=== PATIENT | female | born 1970 | race Caucasian/White ===

== ENCOUNTER 2018-05-23 14:34 | Emergency (ER) | payer MEDICAID ==
[~2018-05-23] VITALS: Ht 170.2 cm; Wt 82.2 kg
[2018-05-23 15:00] VITALS: BP 179/183
[2018-05-23] MEDS ORDERED: KETOROLAC 60 MG/2 ML VIAL IM ONE (17:15)
[2018-05-23 17:56] VITALS: BP 165/98
== END 2018-05-23 17:56 | disposition home or self-care (01) ==
LOC: MED 14:34
DX: H10.9 Unspecified conjunctivitis (principal); I10 Essential (primary) hypertension
CPT/HCPCS: 96372; 99283; J1885

== ENCOUNTER 2019-07-17 15:55 | Emergency (ER) | payer MEDICAID, OTHER ==
[~2019-07-17] VITALS: Ht 152.4 cm; Wt 86.2 kg
[2019-07-17 16:11] VITALS: BP 134/93
[2019-07-17] MEDS ORDERED: NACL 0.9% 1,000 ML IV SCH (16:36)
--- NOTE | 2019-07-17 16:37 | NUR ---
BIB SELF C/O ABD PAIN, N/V/D X3 DAYS S/P TRIP TO [place] jul 08- LOWER ABD PAIN, SHARP/STABBING 10/10, NON RADIATING. DENIES SOB/ CHEST PAIN. CHILLS PRESENT. PT IS PALE, NON-DIAPHORETIC. NO COUGH PRESENT. BOWEL SOUNDS NORMOACTIVE IN ALL QUADRANTS. CAP REFILL <3. ABD FIRM/NON TENDER. PMH: HTN NKA
[2019-07-17] MEDS ORDERED: DIPHENOXYLATE /ATROPINE 2.5 MG TAB PO ONE (16:40)
[2019-07-17] MEDS ORDERED: ONDANSETRON 4 MG/2 ML VIAL IVP ONE ×2 (16:40→18:25)
[2019-07-17] MEDS ORDERED: ACETAMINOPHEN 325 MG TAB PO ONE (16:40)
[2019-07-17 17:01] LABS: BASOPHILS % (AUTO) 0.3 % (0.0-2.0); EOSINOPHILS # (AUTO) 0.1 K/uL (0-0.4); EOSINOPHILS % (AUTO) 1.6 % (0.0-4.0); HEMATOCRIT 29.4 % (36-48); HEMOGLOBIN 9.4 g/dL (12.0-16.0); LYMPHOCYTES # (AUTO) 0.6 K/uL (2.5-16.5); LYMPHOCYTES % (AUTO) 7.1 % (20.5-51.1); MEAN CORPUSCULAR HEMOGLOBIN 28 pg (27-31); MEAN CORPUSCULAR HGB CONC 32 g/dL (33-37); MEAN CORPUSCULAR VOLUME 88.7 fL (80-94); MONOCYTES # (AUTO) 0.9 K/uL (0.8-1.0); MONOCYTES % (AUTO) 10.9 % (1.7-9.3); NEUTROPHILS # (AUTO) 6.8 K/uL (1.8-7.7); NEUTROPHILS % (AUTO) 80.1 % (42.2-75.2); PLATELET COUNT (AUTO) 173 K/uL (140-450); RED BLOOD CELL COUNT(AUTO) 3.32 MIL/uL (4.20-5.40); WHITE BLOOD COUNT (AUTO) 8.5 K/uL (4.8-10.8)
[2019-07-17 17:03] LABS: BILIRUBIN,URINE 1+ (NEGATIVE); BLOOD, URINE 2+ (NEGATIVE); COLOR,URINE YELLOW (YELLOW); LEUKOCYTE ESTERASE ,URINE TRACE (NEGATIVE); NITRITE, URINE NEGATIVE (NEGATIVE); PH,URINE 5.5 (5.0-9.0); UGLUCOSE NEGATIVE (NEGATIVE)
[2019-07-17 17:08] LABS: APPEARANCE,URINE HAZY (CLEAR)
[2019-07-17 17:25] LABS: RBC,URINE 0-5 /HPF (0-5); WBC,URINE 0-5 /HPF (0-5)
[2019-07-17 17:40] LABS: ALBUMIN 2.4 g/dL (3.4-5.0); ANION GAP 17.2 (8-16); CARBON DIOXIDE 20.8 mmol/L (21-32); CREATININE 2.8 mg/dL (0.6-1.3); TOTAL BILIRUBIN 0.6 mg/dL (0.0-1.0)
[2019-07-17] MEDS ORDERED: MORPHINE SULFATE 2 MG/ML SYR IVP ONE (18:25)
--- NOTE | 2019-07-17 18:57 | NUR ---
PATIENT REPORTS HEAD PAIN HAS IMPROVED, 2/10. ABD PAIN 8/10. NAUSEA PRESENT.
[2019-07-17 19:05] VITALS: BP 135/67
--- NOTE | 2019-07-17 19:06 | NUR ---
Patient discharged with v/s stable. Written and verbal after care instructions given and explained. Patient alert, oriented and verbalized understanding of instructions. Ambulatory with steady gait. All questions addressed prior to discharge. ID band removed. Patient advised to follow up with PMD. Rx of ZOFRAN, LOMOTIL, NORCO given. Patient educated on indication of medication including possible reaction and side effects. Opportunity to ask questions provided and answered.
--- NOTE | 2019-07-18 08:26 | NUR ---
Late entry. Confirmed with RN that 0.9NS IV completed at 1800
== END 2019-07-17 19:06 | disposition home or self-care (01) ==
LOC: MED 15:55
DX: E86.0 Dehydration (principal); M32.8 Other forms of systemic lupus erythematosus; N28.9 Disorder of kidney and ureter, unspecified
CPT/HCPCS: 36415; 80053; 81001; 81025; 83690; 85025; 96374; 96375; 96376; 99283; J2270; J2405; J7030

== ENCOUNTER 2019-07-22 23:09 | Inpatient (IN) | payer SELFPAY ==
[~2019-07-22] VITALS: Ht 167.6 cm; Wt 81.6 kg
[2019-07-22 23:15] VITALS: BP 178/100
--- NOTE | 2019-07-22 23:15 | NUR ---
TO BED # 02 AMBULATORY
--- NOTE | 2019-07-22 23:38 | NUR ---
PT C/O ABD PAIN N/V/D X FEW DAYS. PT ALSO STATES HAVING C/P. PT APPEARS TO BE PALE, WARM AND DRY. PT FAMILY AT BEDSIDE STATES NORMALLY PALE BUT MORE PALE THAN NORMAL. PT STATES HAVING 1 EPISODE OF BLOOD IN STOOL. PT STATES VOMITING UP EVERYTHING INCLUDING MEDICATION. PT APPEARS TO BE IN NO DISTRESS. TENDER TO PALPATION IN DIFUSE ABD. NSR. CLEAR LUNGS. NO SOB. AAOX4 WITH EVEN AND STEADY GAIT; LUNGS CLEAR BL; HR EVEN AND REGULAR; PT DENIES ANY FEVER, SOB, OR COUGH AT THIS TIME; PATIENT STATES PAIN OF 5/10 AT THIS TIME; BP ELEVATED; PATIENT POSITIONED FOR COMFORT; HOB ELEVATED; BEDRAILS UP X1; BED DOWN. ER MD MADE AWARE OF PT STATUS.
[2019-07-22] MEDS ORDERED: PANTOPRAZOLE 40 MG INJ VIAL IVP ONE (23:45)
[2019-07-23] LABS: BASOPHILS # (AUTO) 0.1 K/uL (0.00-0.22); EOSINOPHILS # (AUTO) 0.2 K/uL (0-0.4); EOSINOPHILS % (AUTO) 3.2 % (0.0-4.0); HEMATOCRIT 32.4 % (36-48); HEMOGLOBIN 10.6 g/dL (12.0-16.0); LYMPHOCYTES # (AUTO) 0.5 K/uL (2.5-16.5); MEAN CORPUSCULAR HEMOGLOBIN 28 pg (27-31); MEAN CORPUSCULAR HGB CONC 33 g/dL (33-37); MEAN CORPUSCULAR VOLUME 86.7 fL (80-94); MONOCYTES # (AUTO) 0.6 K/uL (0.8-1.0); MONOCYTES % (AUTO) 11.7 % (1.7-9.3); NEUTROPHILS # (AUTO) 4.1 K/uL (1.8-7.7); NEUTROPHILS % (AUTO) 75.1 % (42.2-75.2); PLATELET COUNT (AUTO) 243 K/uL (140-450); RED BLOOD CELL COUNT(AUTO) 3.74 MIL/uL (4.20-5.40); RED CELL DISTRIBUTION WIDTH 14.7 % (11.6-13.7); WHITE BLOOD COUNT (AUTO) 5.5 K/uL (4.8-10.8)
[2019-07-23 00:15] LABS: ALBUMIN 2.5 g/dL (3.4-5.0); ANION GAP 15.5 (8-16); CARBON DIOXIDE 23.8 mmol/L (21-32); CREATININE 1.6 mg/dL (0.6-1.3); POTASSIUM 4.3 mmol/L (3.5-5.1); TOTAL BILIRUBIN 0.2 mg/dL (0.0-1.0)
--- NOTE | 2019-07-23 00:26 | NUR ---
PT GIVEN ZOFRAN 4MG IVP GIVEN FOR NAUSEA.
--- NOTE | 2019-07-23 00:30 | NUR ---
UA COLLECTED. B/P 192/111. NOTIFED. GAVE ORDER TO CONTINUE TO [facility] AT THIS TIME.
[2019-07-23] MEDS ORDERED: ONDANSETRON 4 MG/2 ML VIAL IVP ONE (00:35)
[2019-07-23 00:39] LABS: PROTHROMBIN TIME 10.5 secs (10.8-13.4)
[2019-07-23 00:43] LABS: APPEARANCE,URINE CLEAR (CLEAR); BILIRUBIN,URINE NEGATIVE (NEGATIVE); BLOOD, URINE 2+ (NEGATIVE); COLOR,URINE YELLOW (YELLOW); LEUKOCYTE ESTERASE ,URINE NEGATIVE (NEGATIVE); NITRITE, URINE NEGATIVE (NEGATIVE); UGLUCOSE NEGATIVE (NEGATIVE)
--- NOTE | 2019-07-23 00:43 | NUR ---
Dr. Singh examining patient.
[2019-07-23 00:57] LABS: RBC,URINE 11-20 (MOD) /HPF (0-5); WBC,URINE 0-5 /HPF (0-5)
[2019-07-23] MEDS ORDERED: NACL 0.9% 1,000 ML IV ONE (01:05)
--- NOTE | 2019-07-23 01:13 | NUR ---
DR. SALMON AT BEDSIDE.
[2019-07-23] MEDS ORDERED: MORPHINE SULFATE 4 MG/ML SYR IVP ONE (01:15)
--- NOTE | 2019-07-23 01:19 | NUR ---
PT TAKEN TO CT
--- NOTE | 2019-07-23 01:40 | NUR ---
MORPHINE 4MG IVP GIVEN FOR C/P 10/26. BP: 196/111, HR:80.
[2019-07-23] MEDS ORDERED: hydrALAZINE 20 MG/ML VIAL IVP ONE (02:00)
--- NOTE | 2019-07-23 02:10 | NUR ---
PT BP:203/119. DR. SALMON MADE AWARE AND GAVE NEW ORDERS FOR HYDRALAZINE 10MG IVP.
[2019-07-23] MEDS ORDERED: LEFL20TA18 PO (02:35)
[2019-07-23] MEDS ORDERED: LISI10TA11 PO (02:35)
[2019-07-23] MEDS ORDERED: CARV25TA PO (02:35)
[2019-07-23] MEDS ORDERED: HYDR-3298 PO (02:35)
[2019-07-23] MEDS ORDERED: PRED20TA5 PO (02:35)
[2019-07-23] MEDS ORDERED: hydrALAZINE 20 MG/ML VIAL IVP PRN (02:40)
--- NOTE | 2019-07-23 02:40 | NUR ---
PT B/P WENT DOWN TO 193/109. DR. SALMON MADE AWARE AND GAVE NEW ORDER FOR ANOTHER DOSE OF HYRALAZINE 10 MG IVP.
--- NOTE | 2019-07-23 03:15 | NUR ---
PT AAO X4. DENIES SOB. RESPIRATIONS ARE EVEN AND UNLABORED. PT NO LONGER HAS C/O CHEST PAIN 0. BP: 154/99, HR: 90. O2SAT @ 100% RA.
--- NOTE | 2019-07-23 03:25 | NUR ---
RECEIVED FROM ER PER WHEELCHAIR AWAKE AND ALERT. ABLE TO VERBALIZE NEEDS WELL IN YI. CALL LIGHT WITH IN REACH. CARE PLANS FOR THE NIGHT DISCUSSED WITH HER AND CALL LIGHT USE EXPLAINED. PT. ROM X 4. CLEAR SPEECH. DX. OF DEHYDRATION AND GI BLEED. AFEBRILE. SKIN INTACT. NO SOB.
--- NOTE | 2019-07-23 03:25 | NUR ---
Patient will be admitted to [facility]. Admited to [facility]. Will go to room 112B. Belongings list completed. Report to BLAZE HALE.
[2019-07-23 04:00] VITALS: BP 156/88
--- NOTE | 2019-07-23 04:16 | NUR ---
ADMISSION MADE BY USING [employer] DIRECTIONAL DRILL OPERATOR SRINIVAS # [id number]. PT. ABLE TO TALK IN KITTITIAN A LITTLE BUT COMFORTABLE WITH SRI LANKAN.
[2019-07-23] MEDS: NACL 0.45% 1,000 ML IV SCH ×3 (05:44→16:08)
--- NOTE | 2019-07-23 05:44 | NUR ---
1/2 NS AT 100 ML STARTED ORDERED BY MD COLBY. PT. SLEEPING AT THIS TIME BUT WAKES UP EVERY NOW AND THEN AND C/O VOMITING AND NAUSEA. A/O X 4.
[2019-07-23] MEDS: METOCLOPRAMIDE 10 MG/2 ML INJ VIAL IVP SCH ×3 (05:55→17:44)
[2019-07-23] MEDS: ONDANSETRON 4 MG/2 ML VIAL IVP PRN ×2 (05:59→10:35)
--- NOTE | 2019-07-23 06:45 | NUR ---
SLEEPING AT THIS TIME.
--- NOTE | 2019-07-23 07:10 | NUR ---
REPORT RECEIVED FROM NIGHT NURSE BLAZE. PT ASLEEP, NO S/S OF ACUTE DISTRESS NOTED, CALL LIGHT AND PERSONAL ITEMS WITHIN REACH, SAFETY AND FALL PRECAUTIONS IN PLACE. WILL CONTINUE TO MONITOR.
--- NOTE | 2019-07-23 08:51 | NUR ---
DC PLANNING 48 YRS OLD FEMALE PATIENT WAS ADMITTED FROM HOME WITH A DX OF DEHYDRATION AND GI BLEEDING. PT HAS A HX OF LUPUS,ANEMIA AND HTN. CXR SHOWED MILD CARDIOMEGALY ,CT ABD/PELVIS (-). STARTED IV PROTONIX , IVF ZOFRAN AND MORPHINE IVP . DC PLAN TO GO HOME WHEN STABLE CM TO FOLLOW. Addendum: 07/24/19 at 1057 by Beverly Lawson CM DC PLANNING: PT'S H/H WNL , INCREASE BP 166/99 STARTED CLONIDINE MG Q8HRS IN ADDITION TO BP HOME MEDS. DC PLAN IF BP WNL DC HOME TODAY. Addendum: 07/25/19 at 1414 by Beverly Lawson CM DC PLANNING VITALS STABLE 143/79 PT HAS A DISCHARGE ORDER TO GO HOME AND FOLLOW UP WITH PCP
[2019-07-23 08:59] VITALS: BP 181/96
--- NOTE | 2019-07-23 09:03 | NUR ---
PATIENT HAS BEEN SCREENED AND CATEGORIZED MODERATE NUTRITION RISK. PATIENT WILL BE SEEN WITHIN 3-5 DAYS OF ADMISSION. 2.8.[address]
--- NOTE | 2019-07-23 09:15 | NUR ---
PT BP ASSESSED AND NOTED TO BE ELEVATED, PT C/O GUTIERREZ STATES SHE HAS A HX OF MIGRANES, DENIES VISUAL DISTURBANCES, CONTINUES TO C/O NAUSEA, PAGED, CHARGE NURSE NOTIFIED AWAITING REPLY.
[2019-07-23] MEDS: PANTOPRAZOLE 40 MG INJ VIAL IVP SCH (09:37)
[2019-07-23] MEDS ORDERED: INFLUENZA VACCINE QUAD 0.5 ML SYR IMVAC PRN (10:00)
[2019-07-23] MEDS ORDERED: ONDANSETRON 4 MG/2 ML VIAL IVP PRN (10:15)
--- NOTE | 2019-07-23 10:15 | NUR ---
SPOKE W DR STEVE, NOTIFIED PT BP, CO HEADACHE AND PT STATES SHE HAS A HX OF MIGRAINES AND CONTINUED C/O NAUSEA, ORDERS RECEIVED
[2019-07-23] MEDS ORDERED: SUMAtriptan 50 MG TAB PO SCH (11:00)
--- NOTE | 2019-07-23 11:15 | NUR ---
PT SLEEPING AT THIS TIME, APPEARS COMFORTABLE. CALL LIGHT AND PERSONAL ITEMS REMAIN WITHIN REACH, SAFETY PRECAUTIONS IN PLACE. WILL CONTINUE TO MONITOR.
[2019-07-23 12:30] VITALS: BP 194/106
[2019-07-23] MEDS ORDERED: CARVEDILOL 12.5 MG TAB PO SCH (12:40)
--- NOTE | 2019-07-23 12:50 | NUR ---
SPOKE WITH DR STEVE , NOTIFIED OF PT BP, HX OF HTN AND HOME MEDS, ORDERS RECEIVED.
[2019-07-23] MEDS: HYDROCHLOROTHIAZIDE 25 MG TAB PO SCH (13:01)
[2019-07-23] MEDS: LOSARTAN 50 MG TAB PO SCH (13:02)
[2019-07-23 13:30] VITALS: BP 162/99
[2019-07-23] MEDS ORDERED: COMMUNICATION ORDER MC PRN (14:10)
[2019-07-23 14:41] LABS: HEMATOCRIT 30.7 % (36-48)
--- NOTE | 2019-07-23 14:50 | NUR ---
PT SLEEPING AT THIS TIME NO S/S OF ACUTE DISTRESS NOTED, CALL LIGHT AND PERSONAL ITEMS IN REACH, SAFETY AND FALL PRECATIONS IN PLACE, WILL CONTINUE TO MONITOR.
[2019-07-23] MEDS ORDERED: CLON0.1T42 PO (14:52)
--- NOTE | 2019-07-23 15:47 | NUR ---
SUZANNE assessment/discharge plan: High Risk DC Screen Yes Name: Jamshid Vasquez Home Relationship: Pre-Admission Living Arrangements: Lives with Other Other: Jamshid Vasquez Prior ADL Independent Current Home Health Name/Tel: N/A Current DME/02 Name/Tel: N/A Current Hospice Name/Tel: N/A Current Dialysis Name/Tel: N/A Healthcare Decision Maker: Patient Advance Directive No Information Taught: Community Resources Person Taught: Children Teaching Tools: Community Resources Verbal Factors Affecting Learning: None Participation Level: Active Evaluation: Gestures Understanding Verbalizes Understanding Educator: SUZANNE Price Discipline: Case Mgt/Social Svcs Tentative Discharge Plan Summary: Patient is a 48 year old female admitted for dehydration/GI bleed. I met with patient and patient's daughter Yojana Vasquez at bedside. Patient was sleeping. I obtained the following information from Yojana. Patient lives at home with her Jamshid Vasquez and plans to return home upon discharge. Patient's pcp is Helga Robles and she does not have any difficulty filling her prescriptions at pharmacy. Patient does not have hx of mental health or alcohol/substance abuse. Per Garment Fitter Laina, patient use to have [employer] coverage and now does not have insurance, I informed Yojana of this. Per Yojana, she will tell patient to follow up with [employer]. I provided Yojana with education on [employer] www.[email or web address] for community resources. Networker and/or Breast Trimmer will follow up as needed. Signature: SUZANNE Price Date: Jul 23, 2019
[2019-07-23 16:00] VITALS: BP 166/91
[2019-07-23 17:40] VITALS: BP 162/94
--- NOTE | 2019-07-23 17:50 | NUR ---
PT A/O ABLE TO COMMUNICATE NEEDS, FAMILY AT BEDSIDE, PT ASSISTED TO BATHROOM FOR BM, NO BLEEDING NOTED TO STOOL, PT BP ELEVATED, MEDICATION TO BE ADMINISTERED PER ORDER, PT STATES HER HOME BP IS 150/100.
--- NOTE | 2019-07-23 17:57 | NUR ---
ALEXIA Macdonald reminded to give flu shot. Patient wants it. She said she will.
[2019-07-23] MEDS: hydrALAZINE 25 MG TAB PO PRN (17:58)
--- NOTE | 2019-07-23 19:20 | NUR ---
PT REMAINS A/O ABLE TO COMMUNICATE NEEDS, FAMILY AT BEDSIDE. NO S/S OF ACUTE DISTRESS NOTED, CALL LIGHT AND PERSONAL ITEMS IN REACH, SAFETY AND FALL PRECATIONS IN PLACE, REPORT ENDORSED TO ONCOMING SHIFT.
--- NOTE | 2019-07-23 19:43 | NUR ---
CALLED DR. CARDONA REGARDING PT HEADACHE. PER DR. CARDONA TO ORDER TORADOL 30MG, PRN PAIN. WILL PUT IN ORDER AND CONTINUE WITH ORDERS.
[2019-07-23] MEDS: KETOROLAC 30 MG/ML VIAL IVP PRN (20:03)
[2019-07-23] MEDS: cloNIDine 0.1 MG TAB PO SCH (20:05)
--- NOTE | 2019-07-23 20:49 | NUR ---
ENDORSED PT TO ALEXIA CARCAMO FOR CONTINUOUS OF CARE, PT IN STABLE CONDITION. CALL LIGHT WITHIN REACH, FAMILY AT BEDSIDE.
--- NOTE | 2019-07-23 20:50 | NUR ---
RECEIVED FROM OTHER [facility] NURSE, WILLIAM AT BEDSIDE PATIENT FOR CONTINUITY OF CARE. PT ASLEEP, BUT EASILY AROUSABLE BY TACTILE STIMULI. STILL FOR REASSESSMENT OF BLOOD PRESSURE AFTER CLONIDINE ADMINISTRATION. WITH IV ON THE RIGHT AC G 20, INTACT AND PATENT W/ 1/2 NS AT 100 ML/HR. CALL LIGHT WITHIN REACH. WILL CONTINUE TO MONITOR.
[2019-07-24] VITALS (7 sets, daily range): BP systolic 138–186; BP diastolic 73–102
--- NOTE | 2019-07-24 00:44 | NUR ---
PT SLEEPING NO COMPLAINTS AT THIS TIME
[2019-07-24] MEDS: METOCLOPRAMIDE 10 MG/2 ML INJ VIAL IVP SCH ×4 (00:46→17:30)
[2019-07-24] MEDS: NACL 0.45% 1,000 ML IV SCH ×3 (00:47→22:00)
[2019-07-24] MEDS: KETOROLAC 30 MG/ML VIAL IVP PRN ×3 (02:15→17:56)
--- NOTE | 2019-07-24 02:15 | NUR ---
PT C/O OF HEADACHE 03/28 PT ADMINISTERED TORADOL. WILL REASSESS LATER
--- NOTE | 2019-07-24 02:21 | NUR ---
PT ASSISTED TO THE BATHROOM, VOIDED, STEADY GAIT. WENT BACK TO BED, PLACED COMFORTABLE POSITION.
--- NOTE | 2019-07-24 04:00 | NUR ---
TOOK VITAL SIGNS, PT'S BP FOR MONITORING
--- NOTE | 2019-07-24 05:40 | NUR ---
TOOK VITAL SIGNS AGAIN, PT'S BP WENT TO 186/102 HR 73, ADMINISTERED APRESOLINE 25 MG
[2019-07-24] MEDS: hydrALAZINE 25 MG TAB PO PRN (05:46)
--- NOTE | 2019-07-24 06:56 | NUR ---
RECHECKED BP= 148/101 ; HR= 73.
--- NOTE | 2019-07-24 07:47 | NUR ---
RECEIVED BEDSIDE REPORT FROM PM RN PT APPEARS STABLE AND IN NO APPARENT DISTRESS. ALL SAFETY MEASURES ARE IN PLACE WILL CONTINUE TO MONITOR. INTRODUCED SELF TO PT INFORMED PT TO CALL IF NEEDS ANYTHING. PT HAS CALL LIGHT. IV INFUSING IV SITE APPEARS PATENT AND SHOWS NO SIGNS OF INFILTRATION OR INFLAMMATION. WILL CONTINUE TO MONITOR.
--- NOTE | 2019-07-24 09:16 | NUR ---
FREQUENT ROUNDING ON PT PT APPEARS STABLE AND IN NO APPARENT DISTRESS. ALL SAFETY MEASURES ARE IN PLACE WILL CONTINUE TO MONITOR
[2019-07-24] MEDS: PANTOPRAZOLE 40 MG INJ VIAL IVP SCH (09:20)
[2019-07-24] MEDS: LOSARTAN 50 MG TAB PO SCH (09:20)
[2019-07-24] MEDS: HYDROCHLOROTHIAZIDE 25 MG TAB PO SCH (09:20)
[2019-07-24] MEDS: cloNIDine 0.1 MG TAB PO SCH ×3 (09:23→21:06)
--- NOTE | 2019-07-24 11:32 | NUR ---
FREQUENT ROUNDING ON PT PT APPEARS STABLE AND IN NO APPARENT DISTRESS. ALL SAFETY MEASURES ARE IN PLACE WILL CONTINUE TO MONITOR.
--- NOTE | 2019-07-24 13:46 | NUR ---
FREQUENT ROUNDING ON PT PT APPEARS STABLE AND IN NO APPARENT DISTRESS. ALL SAFETY MEASURES ARE IN PLACE WILL CONTINUE TO MONITOR.
--- NOTE | 2019-07-24 15:30 | NUR ---
FREQUENT ROUNDING ON PT PT APPEARS STABLE AND IN NO APPARENT DISTRESS. ALL SAFETY MEASURES ARE IN PLACE
[2019-07-24] MEDS ORDERED: LABETALOL 100 MG TAB PO SCH (16:55)
[2019-07-24] MEDS: hydrALAZINE 25 MG TAB PO SCH (17:00)
--- NOTE | 2019-07-24 17:30 | NUR ---
HELD HYDRALAZINE GAVE ORDERED LABETALOL WILL CONTINUE TO MONITOR BP BEFORE ADMINISTERING HYDRALAZINE. DISCUSSED WITH BUILDING TRADES INSTRUCTOR INGRID
--- NOTE | 2019-07-24 19:28 | NUR ---
ENDORSED PT TO PM RN PT APPEARS STABLE AND IN NO APPARENT DISTRESS. ALL SAFETY MEASURES ARE IN PLACE
--- NOTE | 2019-07-24 19:29 | NUR ---
RECD. RESTING IN BED, SLEEPING COMFORTABLY. EASILY WAKES UP WHEN NAME CALLED, A/OX4. RESPIRATION EVEN AND UNLABORED. AMBULATING BY HERSELF. IV OF 1/2 NS INFUSING, RIGHT AC G18. PLAN OF CARE DISCUSSED. VERBALIZED UNDERSTANDING. DENIES PAIN 0/10.
--- NOTE | 2019-07-24 20:00 | NUR ---
Patient's Plan of Care was discussed and reviewed with BABBITT SPINNER: RAMON MACIAS
--- NOTE | 2019-07-24 21:06 | NUR ---
DUE PO MEDICATION GIVEN.
[2019-07-24] MEDS ORDERED: TEMAZEPAM 15 MG CAP PO PRN (22:10)
[2019-07-24] MEDS ORDERED: ACETAMINOPHEN 650 MG/20.3 ML UDC PO PRN (22:10)
[2019-07-24] MEDS ORDERED: ACETAMINOPHEN 325 MG TAB PO PRN (22:40)
--- NOTE | 2019-07-24 23:35 | NUR ---
UNABLE TO SLEEP, MEDICATED WITH RESTORIL PER MD ORDER.
[2019-07-25] VITALS: BP_SYST 160; BP_SYST 171; BP_DIAS 95
[2019-07-25] MEDS: METOCLOPRAMIDE 10 MG/2 ML INJ VIAL IVP SCH ×3 (00:02→12:53)
--- NOTE | 2019-07-25 00:35 | NUR ---
SLEEPING COMFORTABLY IN BED.
[2019-07-25] MEDS: hydrALAZINE 25 MG TAB PO PRN (01:07)
--- NOTE | 2019-07-25 01:07 | NUR ---
BP - 171/95, MEDICATED WITH APRESOLINE 25 MG. PO.
[2019-07-25] MEDS: NACL 0.45% 1,000 ML IV SCH ×2 (01:08→10:00)
--- NOTE | 2019-07-25 02:05 | NUR ---
BP - 160/95, RR - 72. RESTING COMFORTABLY IN BED.
[2019-07-25 04:00] VITALS: BP 171/96
[2019-07-25] MEDS: cloNIDine 0.1 MG TAB PO SCH ×2 (04:28→12:53)
[2019-07-25] MEDS: KETOROLAC 30 MG/ML VIAL IVP PRN ×2 (04:33→10:43)
[2019-07-25 05:35] VITALS: BP 158/85
--- NOTE | 2019-07-25 06:00 | NUR ---
BP - 158/85, HR -72. SLEEPING COMFORTABLY IN BED.
--- NOTE | 2019-07-25 06:56 | NUR ---
CONDITION REMAIN STABLE. WILL ENDORSE TO AM SHIFT NURSE FOR CONTINUITY OF CARE.
--- NOTE | 2019-07-25 07:10 | NUR ---
RECEIVED REPORT FROM NIGHT NURSE. PATIENT IN STABLE CONDITION. AAOX4. SKIN WARM AND DRY TO TOUCH. RESPIRATORY EVEN AND UNLABORED. DENIES ANY PAIN OR DISCOMFORT. IV INTACT AND PATENT TO RIGHT AC WITH IVF NS @ 100ML/HR. BED IN LOW POSITION. SAFETY MEASURES IN PLACE. CALL LIGHT WITHIN REACH.
[2019-07-25 07:11] LABS: BASOPHILS % (AUTO) 0.6 % (0.0-2.0); EOSINOPHILS # (AUTO) 0.3 K/uL (0-0.4); EOSINOPHILS % (AUTO) 4.2 % (0.0-4.0); HEMATOCRIT 27.1 % (36-48); HEMOGLOBIN 8.8 g/dL (12.0-16.0); LYMPHOCYTES # (AUTO) 0.8 K/uL (2.5-16.5); MEAN CORPUSCULAR HEMOGLOBIN 28 pg (27-31); MEAN CORPUSCULAR HGB CONC 32 g/dL (33-37); MEAN CORPUSCULAR VOLUME 86.5 fL (80-94); MONOCYTES % (AUTO) 15.2 % (1.7-9.3); NEUTROPHILS # (AUTO) 4.5 K/uL (1.8-7.7); PLATELET COUNT (AUTO) 203 K/uL (140-450); RED BLOOD CELL COUNT(AUTO) 3.14 MIL/uL (4.20-5.40); RED CELL DISTRIBUTION WIDTH 14.8 % (11.6-13.7); WHITE BLOOD COUNT (AUTO) 6.7 K/uL (4.8-10.8)
[2019-07-25 07:26] LABS: ANION GAP 11.7 (8-16); CARBON DIOXIDE 20.9 mmol/L (21-32); CREATININE 1.7 mg/dL (0.6-1.3); POTASSIUM 3.6 mmol/L (3.5-5.1)
[2019-07-25 08:00] VITALS: BP 158/97
[2019-07-25] MEDS: PANTOPRAZOLE 40 MG INJ VIAL IVP SCH (09:44)
[2019-07-25] MEDS: hydrALAZINE 25 MG TAB PO SCH ×2 (09:44→12:53)
[2019-07-25] MEDS: HYDROCHLOROTHIAZIDE 25 MG TAB PO SCH (09:45)
[2019-07-25] MEDS: LOSARTAN 50 MG TAB PO SCH (09:45)
--- NOTE | 2019-07-25 09:45 | NUR ---
PATIENT RECEIVE AM MEDICATIONS. PATIENT REMAINS IN STABLE CONDITION. BP MEDS GIVEN ORDERED. PATIENT ABLE TO MAKE NEEDS KNOWN. CALL LIGHT WITHIN REACH. NO S/S OF DISTRESS NOTED.
--- NOTE | 2019-07-25 10:41 | NUR ---
PNA N/A. Patient wants flu shot. Flu vac order in place. ALEXIA Kaplan reminded to give flu shot. She said okay.
[2019-07-25 11:00] VITALS: BP 143/79
--- NOTE | 2019-07-25 11:00 | NUR ---
PATIENT DECLINED TO RECEIVE FLU VACCINE AT THIS TIME.
--- NOTE | 2019-07-25 11:50 | NUR ---
PATIENT AMBULATES WITH STEADY GAIT. PATIENT C/O OF NAUSEA EARLIER, ZOFRAN GIVEN IVP ORDERED.
[2019-07-25 12:53] VITALS: BP 143/79
[2019-07-25] MEDS ORDERED: HYDR100T79 PO (13:42)
--- NOTE | 2019-07-25 13:50 | NUR ---
PATIENT IS IN BED, ASLEEP. NO S/S OF DISTRESS NOTED.
[2019-07-25] MEDS ORDERED: traMADol 50 MG TAB PO PRN (13:55)
[2019-07-25] MEDS ORDERED: TEMAZEPAM 15 MG CAP PO PRN (13:56)
--- NOTE | 2019-07-25 14:00 | NUR ---
DR. STEVE IN UNIT. NOTIFIED IN REGARDS TO PATIENT C/O HEADACHE, PT STATING TORADOL "HELPED FOR A LITTLE BIT" PER DOCTOR HE WILL ORDER TRAMADOL PRN.
--- NOTE | 2019-07-25 14:05 | NUR ---
PER DR. STEVE PATIENT IS STABLE FOR DISCHARGE.
--- NOTE | 2019-07-25 16:05 | NUR ---
PATIENT DISCHARGED TO HOME WITH DAUGHTER VIA PRIVATE VEHICLE. PATIENT TRANSPORTED TO THE CAR VIA W/C. PATIENT PROVIDED WITH ALL DISCHARGE INSTRUCTIONS PACKET, PRESCRIPTIONS AND ALL BELONGINGS SENT WITH PATIENT. IV REMOVED, BLEEDING CONTROLLED, ID BANDS REMOVED. PATIENT IN STABLE CONDITION.
== END 2019-07-25 16:05 | disposition home or self-care (01) | DRG 641 ==
LOC: MED 23:09 → MTU 07-23 02:02 → OBSVTOIN 07-24 17:15
PROVIDERS: ADMIT Hospitalist; ATTEND Hospitalist
DX: E86.0 Dehydration (principal); N17.9 Acute kidney failure, unspecified; D64.9 Anemia, unspecified; I10 Essential (primary) hypertension; I16.0 Hypertensive urgency; M32.9 Systemic lupus erythematosus, unspecified; K29.70 Gastritis, unspecified, without bleeding
CPT/HCPCS: 36415; 71045; 80048; 80053; 81001; 83690; 85014; 85018; 85025; 85610; 85730; 86886; 86900; 86901; 87081; 93005; 96374; 96375; 96376; 99285; C9113; G0378; J0360; J1885; J2270; J2405; J2765; J7030; Q0092